=== PATIENT | male | born 1975 | race Native Hawaiian/Other Pacific Islander ===

== ENCOUNTER 2016-10-10 10:54 | Outpatient (CLI) | payer BC | END 2016-10-10 11:54 | disposition home or self-care (01) | LOC: RAD 10:54 | DX: S86.111A Strain of other muscle(s) and tendon(s) of posterior muscle group at lower leg level, right leg, initial encounter (principal) ==

== ENCOUNTER 2022-12-05 12:14 | Outpatient (CLI) | payer BC | END 2022-12-05 19:16 | disposition home or self-care (01) | LOC: RAD 12:14 | PROVIDERS: ATTEND Registered Nurse | DX: R10.31 Right lower quadrant pain (principal) | CPT/HCPCS: Q9963 ==